=== PATIENT | female | born 1985 | race Two or more races ===

== ENCOUNTER 2016-10-24 21:29 | Emergency (ER) | payer OTHER ==
[2016-10-24] MEDS ORDERED: CEPHALEXIN 500 MG CAP PO ONE (22:42)
[2016-10-24] MEDS ORDERED: HYDROCOD/APAP 5/325 PREPACK#6 BTL TAKEHOME ONE (22:42)
--- NOTE | 2016-10-24 22:42 | EDPHY ---
H & P Stated Complaint: R leg/groin pain unknown cause since yesterday HPI/ROS: Chief complaint: Pain and swelling around the vagina History of present illness: This is a 31-year-old female who presents to the emergency department for pain and swelling around the vagina. She states symptoms began today. It is primarily on the right side of the vagina. It has been progressively worsening. She had a similar problem approximately a month ago and had a Bartholin's gland cyst incised and drained, this feels similar. She denies other associated signs or symptoms including no vaginal bleeding, no discharge, no urinary symptoms. - Personal History LMP (Females 10-55): Over 28 Days Ago Current Tetanus/Diphtheria Vaccine: Unsure Current Tetanus Diphtheria and Acellular Pertussis (TDAP): Unsure - Medical/Surgical History Hx Asthma: No Hx Chronic Respiratory Disease: No Hx Diabetes: No Hx Cardiac Disease: No Hx Renal Disease: No Hx Cirrhosis: No Hx Alcoholism: No Hx HIV/AIDS: No Hx Splenectomy or Spleen Trauma: No Other PMH: denies - Social History Smoking Status: Never smoked - Physical Exam Exam: General: Alert, nontoxic Pelvic exam: Erythema and edema to the right labia region. No discharge from the vagina. A female circle shear operator was present. Constitutional: Initial Vital Signs Temperature (C) 36.6 C 10/24/16 21:30 Heart Rate 102 H 10/24/16 21:30 Respiratory Rate 18 10/24/16 21:30 Blood Pressure 108/85 H 10/24/16 21:30 O2 Sat (%) 97 10/24/16 21:30 O2 Delivery Mode Room Air Allergies/Adverse Reactions: No Known Allergies Allergy (Unverified 10/24/16 21:35) Home Medications: Medication Instructions Recorded Cephalexin [Keflex] 500 mg PO QID 7 Days 10/24/16 Medical Decision Making Procedures: Procedure: Abscess drainage. The patient's bartholin gland abscess was located on the right side of the vagina. I obtained verbal consent from the patient to drain the abscess who was informed about the possibility of bleeding and pain. The abscess was incised with a scalpel and a large amount of purulent drainage was expressed. I irrigated the wound and placed some packing. The patient tolerated the procedure well. The procedure was performed by myself. ED Course/Re-evaluation: Patient seen under the supervision of my secondary supervising physician Dr. Joce Renteria. Patient presents to the emergency department for pain and swelling around her vagina. She has a history of Bartholin's gland abscess. She appears to have a recurrence of an abscess. It is incised and drained and a large amount of pus is drained. Packing is placed. Given extent of it she is placed on antibiotics. She is asked to follow up with an OBGYN and referral information is provided. Packing to be removed in 2 days. Home care is discussed. Strict return precautions are given. Patient voiced understanding and agreement with plan. - Data Points Medications Given: Discontinued Medications Hydrocodone Bitart/Acetaminophen ([place] 5/325mg Prepack#6) 1 btl TAKEHOME EDNOW ONE Stop: 10/24/16 22:43 Last Admin: 10/24/16 23:06 Dose: 1 btl Cephalexin HCl (Keflex) 500 mg PO EDNOW ONE PRN Reason: Protocol Stop: 10/24/16 22:43 Last Admin: 10/24/16 23:06 Dose: 500 mg Famotidine (Pepcid) 20 mg PO EDNOW ONE Stop: 10/24/16 22:57 Last Admin: 10/24/16 23:06 Dose: 20 mg Departure - Departure Disposition: Home, Routine, Self-Care Clinical Impression: Bartholin gland cyst Condition: Good Instructions: Hydrocodone/Acetaminophen (By mouth), Bartholin Cyst (ED) Additional Instructions: Follow-up with a primary care doctor for continued evaluation and care Packing to be removed in 2 days If symptoms worsen or new symptoms develop return to the emergency room for recheck Referrals: NONE *PRIMARY CARE P,. [Primary Care Provider] - As per Instructions Rohini Whitaker MD [Medical Doctor] - As per Instructions Prescriptions: Cephalexin [Keflex] 500 mg PO QID 7 Days
[2016-10-24] MEDS ORDERED: FAMOTIDINE 20 MG TAB PO ONE (22:56)
[2016-10-24 23:07] VITALS: BP 107/78; PULSE 67; RESP 19; TEMP 99; O2SAT 94
== END 2016-10-24 23:06 | disposition home or self-care (01) ==
LOC: EEVIPCON 21:29
DX: N75.1 Abscess of Bartholin's gland (principal)

== ENCOUNTER 2016-10-26 19:48 | Emergency (ER) | payer OTHER ==
[2016-10-26 20:04] VITALS: BP 124/79; PULSE 91; RESP 16; TEMP 99; O2SAT 98
--- NOTE | 2016-10-26 20:22 | EDPHY ---
H & P Smoking Status: Never smoked Time Seen by Provider: 10/26/16 20:12 HPI/ROS: CHIEF COMPLAINT: Wound packing removal Bartholin cyst HISTORY OF PRESENT ILLNESS: 31-year-old female visiting from [place], seen the ER 2 days ago for Bartholin cyst incision and drainage, in the ER for wound packing removal. She is feeling improvement in symptoms. Denies fever chills. Denies nausea or vomiting. Denies abdominal pain. Denies urinary complaints. PHYSICAL EXAM (Prior to examination, patient consented to physical exam, hands were washed and my usual and customary physical exam procedures followed) 1) GENERAL: Well-developed, well-nourished, alert and oriented. Appears to be in no acute distress. 2) HEAD: Normocephalic 3) HEENT: sclera anicteric 4) LUNGS: Breathing comfortably. [5) (With female nurse Tessy Omalley at bedside): Packing in place, removed revealing continued drainage. No new areas of fluctuance or induration appreciated on exam. (Pieter Liu) Constitutional: Initial Vital Signs Temperature (C) 37.2 C 10/26/16 20:02 Heart Rate 91 10/26/16 20:02 Respiratory Rate 16 10/26/16 20:02 Blood Pressure 124/79 H 10/26/16 20:02 O2 Sat (%) 98 10/26/16 20:02 O2 Delivery Mode Room Air Allergies/Adverse Reactions: No Known Allergies Allergy (Unverified 10/26/16 20:02) Home Medications: Medication Instructions Recorded Cephalexin [Keflex] 500 mg PO QID 7 Days 10/24/16 Hydrocodone/APAP 5/325 [[place] 1 tab PO Q6 PRN #10 tab 10/26/16 5/325 (RX)] MDM/Departure - MDM ED Course/Re-evaluation: This patient's packing has been removed. There are no new areas of fluctuance or induration. I recommend she follow up with OBGYN as she is traveling and planning on spending the next 6 months in [place] (Pieter Liu) I did not see this patient while she was in the emergency department. However her care was discussed with the PA while the patient was in the department. I agree with treatment plan and management (Vu Samuel) - Depart Disposition: Home, Routine, Self-Care Clinical Impression: Bartholin gland cyst Condition: Good Instructions: Bartholin Cyst (ED) Additional Instructions: Return to the ER if you develop new or worsening symptoms, have worsening pain, or any other symptoms that concern you Prescriptions: Hydrocodone/APAP 5/325 [[place] 5/325 (RX)] 1 tab PO Q6 PRN #10 tab PRN Reason: Pain, Severe Referrals: Skylar Xiao DO [Doctor of Osteopathy] - 1-2 days without fail (Dr. Skylar Xiao is an machine pecan picker)
== END 2016-10-26 20:49 | disposition home or self-care (01) ==
LOC: EEVIPCON 19:48
DX: Z48.01 Encounter for change or removal of surgical wound dressing (principal)